=== PATIENT | female | born 1960 | race Caucasian/White ===

== ENCOUNTER 2016-11-23 15:19 | Emergency (ER) | payer OTHER ==
[~2016-11-23] VITALS: Ht 182.9 cm; Wt 97.5 kg
--- NOTE | ~2016-11-23 | EKG ---
[address] [place] [address] ELECTROCARDIOGRAM REPORT Name: KYM ODELL Room #: [facility]P [facility] [id number] Admission: 11/23/16 Attend Phys: Discharge: 11/23/16 Date of : 60 Report #: [id number] THIS REPORT FOR: //name// 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
[2016-11-23 16:41] LABS: HEMATOCRIT 42.9 % (37.0-47.0); HEMOGLOBIN 14.4 gm/dL (12.0-15.0); MCH 30.7 pg (26.0-34.0); MCHC 33.5 g/dL (28.0-37.0); MCV 91.6 fL (80.0-100.0); RBC 4.68 mil/uL (4.20-5.00); RDW 13.3 % (10.5-14.5); WBC 9.4 thou/uL (4.0-11.0)
[2016-11-23 16:51] LABS: CALCIUM 9.5 mg/dL (8.5-10.1); CREATININE 0.8 mg/dL (0.6-1.0); POTASSIUM 4.3 mmol/L (3.5-5.1)
[2016-11-23 16:55] LABS: ALBUMIN 4.1 g/dL (3.4-5.0); MAGNESIUM 2.1 mg/dL (1.8-2.4); PHOSPHORUS 3.8 mg/dL (2.5-4.9); TOTAL BILIRUBIN 0.3 mg/dL (<0.1-1.0); TOTAL PROTEIN 7.8 g/dL (6.4-8.2)
[2016-11-23] MEDS ORDERED: LEVOTHYROXIN0.112 M1 PO (17:15)
[2016-11-23 17:56] VITALS: BP 162/86
== END 2016-11-23 17:38 | disposition home or self-care (01) ==
LOC: ER 15:19
PROVIDERS: Emergency Medicine
DX: Z71.1 Person with feared health complaint in whom no diagnosis is made (principal); M79.1 Myalgia; Z86.39 Personal history of other endocrine, nutritional and metabolic disease